=== PATIENT | female | born 1960 | race Caucasian/White ===

== ENCOUNTER → 2019-01-26 | Outpatient (CLI) | payer MEDICARE, MEDICAID ==
[~2019-01-26] MED LIST: 00186-0372-20 IH; ALBUTEROL0.83 MG/ML IH; CEFTIN250 M1 PO; CELEXA 20MG20 MG/TAB PO; CELEXA40 MG PO; CEPHALEXIN500 M1; CITALOPRAM20 MG PO; CLONAZEPAM PO; DAZIDOX10 MG PO; DILAUDID 2MG TAB2 MG PO; FEROSUL325 MG PO; FLEXERIL 1010 MG/TAB PO; FLONASE NASAL S16 GM NS; HORMONE PATCH; KLONOPIN 0.5MG0.5 MG PO; LEVAQUIN 5500 MG/TA1 PO; MOTRIN 800800 MG/TAB PO; NITROSTAT0.4 MG/TAB SL; NORCO 325 MG-51 TAB PO; NORCO 325 MG-7.1 TAB PO; OMEPRAZOLE D/R20 MG PO; OXYCODONE5 MG PO; PERCOCET 325 MG1 TA2 PO; PERCOCET 325 MG1 TAB PO; PREDNISONE20 MG; PYRIDIUM200 M1 PO; RESTORIL30 MG PO; RIBAVIRIN200 MG PO; RT SPIRIVA18 MCG IH; SPIRIVA HANDIH18 MCG IH; SYMBICORT1 AE2 IH; TEMAZEPAM15 MG PO; TEMAZEPAM30 MG PO; VALTREX1 GM PO; VENTOLIN0.09 MG IH; VIVELLE0.1 MG/24 TD; ZOFRAN4 M1 PO; [UNRECOGNIZED DRUG - OTHER]; [UNRECOGNIZED DRUG - OTHER]
== END ==
LOC: COL.VAS 12:30
DX: M79.89 Other specified soft tissue disorders (principal); Z87.828 Personal history of other (healed) physical injury and trauma